=== PATIENT | female | born 1995 | race Caucasian/White ===

== ENCOUNTER → 2021-06-30 | Day surgery (SDC) | payer OTHER ==
[~2021-06-30] MED LIST: CEPHALEXIN500 M1 PO; COLACE 100MG C100 MG PO; DOCUSATE SODIU100 MG PO; HYDROCODON-ACE1 EAC4 PO; IBUPROFEN600 MG PO; IBUPROFEN800 MG PO; LORTAB 5-325 M1 EACH PO; MACROBID 100 M100 MG PO; PRENATAL TABLE1 EAC1 PO
[2021-06-30 07:43] LABS: HEMOGLOBIN 12.4 gm/dl (12.3-15.3); RED BLOOD COUNT 4.23 M/UL (4.00-5.10); WHITE BLOOD COUNT 7.7 K/UL (4.5-11.0)
== END | disposition home or self-care (01) ==
LOC: OR 05:31
PROVIDERS: Obstetrics & Gynecology
DX: O02.1 Missed abortion (principal); F32.9 Major depressive disorder, single episode, unspecified; Z20.822 Contact with and (suspected) exposure to COVID-19; Z88.8 Allergy status to other drugs, medicaments and biological substances
CPT/HCPCS: 36415; 81001; 85025; J1100; J2001; J2250; J2405; J2704; J2795; J3010; J7030; J7120; U0002

== ENCOUNTER 2021-07-08 08:17 | Emergency (ER) | payer OTHER ==
[~2021-07-08 08:17] MED LIST changes: -CEPHALEXIN500 M1 PO; -DOCUSATE SODIU100 MG PO; -IBUPROFEN800 MG PO; -PRENATAL TABLE1 EAC1 PO
[2021-07-08 09:03] LABS: HEMOGLOBIN 13.4 gm/dl (12.3-15.3); RED BLOOD COUNT 4.39 M/UL (4.00-5.10); WHITE BLOOD COUNT 6.3 K/UL (4.5-11.0)
[2021-07-08 09:31] LABS: BUN/CREATININE RATIO 22 (0-10)
[2021-07-08] MEDS ORDERED: CEPHALEXIN500 M1 PO (10:56)
[2021-07-08] MEDS ORDERED: IBUPROFEN600 MG PO (10:57)
[2021-07-11] MEDS ORDERED: PRENATAL TABLE1 EAC1 PO (10:48)
[2021-07-11] MEDS ORDERED: HYDROCODON-ACE1 EAC4 PO (13:17)
[2021-07-11] MEDS ORDERED: IBUPROFEN800 MG PO (13:17)
[2021-07-11] MEDS ORDERED: DOCUSATE SODIU100 MG PO (13:17)
== END 2021-07-08 11:09 | disposition home or self-care (01) ==
LOC: ER1 08:17
PROVIDERS: Physician Assistant
DX: N93.9 Abnormal uterine and vaginal bleeding, unspecified (principal)
CPT/HCPCS: 80053; 81001; 84702; 85025; 86900; 86901; 87077; 87086; 87186; 99284

== ENCOUNTER → 2021-07-11 | Day surgery (SDC) | payer OTHER ==
[~2021-07-11] MED LIST changes: +CEPHALEXIN500 M1 PO; +DOCUSATE SODIU100 MG PO; +IBUPROFEN800 MG PO; +PRENATAL TABLE1 EAC1 PO
[2021-07-11 10:19] LABS: HEMOGLOBIN 12.7 gm/dl (12.3-15.3); RED BLOOD COUNT 4.25 M/UL (4.00-5.10); WHITE BLOOD COUNT 5.7 K/UL (4.5-11.0)
== END | disposition home or self-care (01) ==
LOC: OR 08:45
PROVIDERS: Obstetrics & Gynecology
DX: O03.4 Incomplete spontaneous abortion without complication (principal); Z88.8 Allergy status to other drugs, medicaments and biological substances; J45.909 Unspecified asthma, uncomplicated; G43.909 Migraine, unspecified, not intractable, without status migrainosus; G40.909 Epilepsy, unspecified, not intractable, without status epilepticus; Z20.822 Contact with and (suspected) exposure to COVID-19; Q79.60 Ehlers-Danlos syndrome, unspecified
CPT/HCPCS: 36415; 81001; 85025; J1100; J1885; J2001; J2250; J2405; J2704; J2795; J3010; J7030; J7120; U0002

== ENCOUNTER → 2021-09-08 | Outpatient (CLI) | payer OTHER | LOC: LAB 06:40 | DX: N92.6 Irregular menstruation, unspecified (principal) | CPT/HCPCS: 84702 ==

== ENCOUNTER → 2021-10-20 | Day surgery (SDC) | payer OTHER ==
[2021-10-20 07:22] LABS: HEMOGLOBIN 11.8 gm/dl (12.3-15.3); RED BLOOD COUNT 4.02 M/UL (4.00-5.10); WHITE BLOOD COUNT 7.3 K/UL (4.5-11.0)
== END | disposition home or self-care (01) ==
LOC: OR 06:09
PROVIDERS: Obstetrics & Gynecology
DX: O02.0 Blighted ovum and nonhydatidiform mole (principal); G40.909 Epilepsy, unspecified, not intractable, without status epilepticus; G43.909 Migraine, unspecified, not intractable, without status migrainosus; J45.909 Unspecified asthma, uncomplicated; F41.9 Anxiety disorder, unspecified; F32.A Depression, unspecified; Z20.822 Contact with and (suspected) exposure to COVID-19; Z88.8 Allergy status to other drugs, medicaments and biological substances
CPT/HCPCS: 36415; 81001; 84702; 85025; J1100; J1885; J2250; J2405; J2704; J3010; J7030; J7120

== ENCOUNTER → 2022-03-09 | Outpatient (CLI) | payer OTHER | LOC: LAB 10:18 | DX: Z32.00 Encounter for pregnancy test, result unknown (principal) | CPT/HCPCS: 36415; 84702 ==

== ENCOUNTER 2022-04-15 20:33 | Emergency (ER) | payer OTHER ==
[2022-04-15 22:39] LABS: HEMOGLOBIN 13.3 gm/dl (12.3-15.3); RED BLOOD COUNT 4.27 M/UL (4.00-5.10); WHITE BLOOD COUNT 10.8 K/UL (4.5-11.0)
[2022-04-15 23:03] LABS: BUN/CREATININE RATIO 23 (0-10)
[2022-04-16] MEDS ORDERED: REGLAN10 MG PO (00:42)
[2022-04-16] MEDS ORDERED: MACROBID 100 M100 MG PO (00:42)
[2022-04-16] MEDS ORDERED: BENTYL 20MG TAB20 MG PO (00:42)
== END 2022-04-16 00:53 | disposition home or self-care (01) ==
LOC: ER1 20:33
PROVIDERS: Physician Assistant
DX: O23.41 Unspecified infection of urinary tract in pregnancy, first trimester (principal); N39.0 Urinary tract infection, site not specified; Z3A.09 9 weeks gestation of pregnancy; Z88.8 Allergy status to other drugs, medicaments and biological substances
CPT/HCPCS: 80053; 81001; 84702; 84703; 85025; 86900; 86901; 87086; 99283

== ENCOUNTER → 2022-05-15 | Outpatient (CLI) | payer OTHER ==
[~2022-05-15] MED LIST changes: +BENTYL 20MG TAB20 MG PO; +REGLAN10 MG PO
== END ==
LOC: HEART 5 12:52
DX: R07.9 Chest pain, unspecified (principal); R06.02 Shortness of breath; Q79.60 Ehlers-Danlos syndrome, unspecified
CPT/HCPCS: 93306